=== PATIENT | male | born 1950 | race Caucasian/White ===

== ENCOUNTER 2019-01-12 14:23 | Emergency (ER) | payer OTHER ==
[2019-01-12 14:51] LABS: ADD MAN DIFF? NO
[2019-01-12 14:55] LABS: WHITE BLOOD COUNT 3.8 10^3/ul (4.8-10.8)
[2019-01-12 14:55] LABS: BASOPHILS % 0.5 % (0.0-2.0); EOSINOPHILS # 0.1 10^3/ul (0.0-0.5); EOSINOPHILS % 2.4 % (0.0-7.0); HEMATOCRIT 40.2 % (42.0-52.0); HEMOGLOBIN 13.8 g/dl (14.0-18.0); LYMPHOCYTES # 0.9 10^3/ul (0.8-2.9); LYMPHOCYTES % 24.1 % (15.0-51.0); MEAN CORPUSCULAR HEMOGLOBIN 30.9 pg (29.0-33.0); MEAN CORPUSCULAR HGB CONC 34.3 g/dl (32.0-37.0); MEAN CORPUSCULAR VOLUME 90.1 fl (82.0-101.0); MEAN PLATELET VOLUME 8.6 fl (7.4-10.4); MONOCYTE # 0.5 10^3/ul (0.3-0.9); MONOCYTES % 14.3 % (0.0-11.0); NEUTROPHIL # 2.2 10^3/ul (1.6-7.5); NEUTROPHILS % 58.4 % (39.0-77.0); PLATELET COUNT 199 10^3/UL (140-415); RED BLOOD COUNT 4.46 10^6/ul (4.70-6.10)
[2019-01-12 15:12] LABS: ANION GAP 5 (5-13); BLOOD UREA NITROGEN 17 mg/dl (7-20); CALCIUM 9.1 mg/dl (8.4-10.2); CARBON DIOXIDE 30 mmol/L (21-31); CHLORIDE 99 mmol/L (97-110); CREATININE 1.22 mg/dl (0.61-1.24); Estimated GFR 59 mL/min (>60); MAGNESIUM 1.7 mg/dl (1.7-2.5); PHOSPHORUS 3.8 mg/dl (2.5-4.9); POTASSIUM 5.3 mmol/L (3.5-5.1); SODIUM 134 mmol/L (135-144)
[2019-01-12] MEDS: SOD CHLORIDE 0.9% 830 ML IV (15:20)
[2019-01-12 15:21] LABS: GLUCOSE 426 mg/dl (70-220)
[2019-01-12] MEDS: INSULIN LISPRO 100 UNIT/ML VIAL SC (16:07)
[2019-01-12] MEDS: ACCU-CHEK XX (16:58)
== END 2019-01-12 17:00 | disposition home or self-care (01) ==
LOC: E/R 14:23
DX: E11.65 Type 2 diabetes mellitus with hyperglycemia (principal)
CPT/HCPCS: 36415; 80048; 82962; 83735; 84100; 85025; 96372; 99284-25